=== PATIENT | female | born 1980 | race Two or more races ===

== ENCOUNTER 2020-05-10 14:01 | Outpatient (REF) | payer OTHER, SELFPAY | END 2020-05-10 14:02 | disposition home or self-care (01) | LOC: HO.LAB 14:01 | PROVIDERS: Visit Provider Internal Medicine | DX: Z20.822 Contact with and (suspected) exposure to COVID-19 (principal) | CPT/HCPCS: 36415; C9803; U0003; U0005 ==

== ENCOUNTER 2020-05-17 20:56 | Emergency (ER) | payer OTHER, SELFPAY | END 2020-05-17 21:13 | disposition left against medical advice (07) | PROVIDERS: Emergency Provider Emergency Medicine | DX: S39.92XA Unspecified injury of lower back, initial encounter (principal); X58.XXXA Exposure to other specified factors, initial encounter; Y93.9 Activity, unspecified; Y92.9 Unspecified place or not applicable; Y99.0 Civilian activity done for income or pay ==

== ENCOUNTER 2020-05-21 15:15 | Outpatient (REF) | payer OTHER, SELFPAY | END 2020-05-21 15:16 | disposition home or self-care (01) | LOC: HO.LAB 15:15 | PROVIDERS: Visit Provider Internal Medicine | DX: Z20.822 Contact with and (suspected) exposure to COVID-19 (principal) | CPT/HCPCS: 36415; C9803; U0003; U0005 ==

== ENCOUNTER 2023-01-23 10:12 | Emergency (ER) | payer SELFPAY ==
[2023-01-23 10:27] VITALS: BP 139/93; PULSE 79; RESP 19; TEMP 36.6; O2SAT 98; BMI 30.5
--- NOTE | 2023-01-23 10:44 | PC.NURSE ---
patient a&ox3, ambulated with steady gait to room, pt c/o stiff neck/neck pain, awaiting to see provider, call silveira within reach, will continue to monitor
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
== END 2023-01-23 11:36 | disposition home or self-care (01) ==
PROVIDERS: Emergency Provider Emergency Medicine
DX: S16.1XXA Strain of muscle, fascia and tendon at neck level, initial encounter (principal); X50.1XXA Overexertion from prolonged static or awkward postures, initial encounter; Y93.89 Activity, other specified; Y92.9 Unspecified place or not applicable; Y99.9 Unspecified external cause status
CPT/HCPCS: 99282; 99283

== ENCOUNTER 2025-01-15 18:13 | Emergency (ER) | payer OTHER, SELFPAY ==
--- NOTE | ~2025-01-15 | XR_ITS ---
CLINICAL HISTORY: pain, injury 4 view right shoulder Comparison: None provided Findings: No fractures or dislocations. No significant arthritic change. No erosions. No radiopaque foreign body. IMPRESSION: 1. No acute findings This document has been electronically signed by: Conrad Casillas MD on 01/15/2025 19:30:19
[2025-01-15 18:20] VITALS: BP 167/79; PULSE 80; RESP 18; TEMP 36.6; O2SAT 98; BMI 28.1
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
[2025-01-15] MEDS: Lidocaine 4 % Patch ADH..PATCH 1 PATCH TRANSDERMA (23:20)
[2025-01-15 23:42] VITALS: BP 167/79; PULSE 80; RESP 18; TEMP 36.6; O2SAT 98
== END 2025-01-15 23:25 | disposition home or self-care (01) ==
PROVIDERS: Emergency Provider Emergency Medicine
DX: S43.401A Unspecified sprain of right shoulder joint, initial encounter (principal); V43.52XA Car driver injured in collision with other type car in traffic accident, initial encounter; Y93.9 Activity, unspecified; Y92.9 Unspecified place or not applicable; Y99.9 Unspecified external cause status; M25.511 Pain in right shoulder
CPT/HCPCS: 73030; 99283

== ENCOUNTER → 2025-01-15 18:22 | Outpatient (BNV) | payer OTHER, SELFPAY | PROVIDERS: Visit Provider Radiology Diagnostic Radiology | DX: M25.511 Pain in right shoulder (principal); S49.91XA Unspecified injury of right shoulder and upper arm, initial encounter | CPT/HCPCS: 73030 ==